=== PATIENT | male | born 1965 | race Caucasian/White ===

== ENCOUNTER 2016-10-28 23:50 | Observation (INO) | payer SELFPAY ==
--- NOTE | ~2016-10-28 | EKG ---
PATIENT: JOSS ALY UNIT #: [id number] Ventricular Rate: 43 BPM Atrial Rate: 43 BPM P-R Interval: 136 ms QRS Duration: 94 ms Q-T Interval: 474 ms QTC Calculation(Bezet): 400 ms P [place]: 50 degrees Calculated R [place]: 52 degrees Calculated T [place]: 58 degrees Diagnosis Line: Marked sinus bradycardia Diagnosis Line: Abnormal ECG Diagnosis Line: When compared with ECG of 12-MAY-2013 20:40, Diagnosis Line: No significant change was found Diagnosis Line: Confirmed by MARY KAY ROSS MD ([id number]) on 10/30/2016 Diagnosis Line: 7:23:32 AM INTERPRETING MD: VANDANA HOOK
--- NOTE | ~2016-10-28 | ST ---
Unit #: [id number] #: [id number] Patient: JOSS ALY [id number] [address] [address] [id number] I MR#: [id number] NAME: JOSS ALY : 1965 SEX: M STUDY DATE/TIME: 10/30/2016 UNIT: C3A PCU ROOM: [facility] STUDY DESCRIPTION: Attending Physician: Ashley Perez M.D. Primary Care Physician: No Primary Care Physician CARDIOLOGY REPORT EXAM Exercise Cardiolite stress test. FINDINGS Baseline EKG: Marked sinus bradycardia with ventricular rate 43 beats per minute, mild left atrial abnormality, T-wave inversion in V1 and V2, early repolarization in inferolateral leads. PROCEDURE Patient walked on the treadmill for 9 minutes utilizing Sreedhar protocol, achieving a workload of 10.1 METs. Next, 95% of maximal target heart rate achieved at 164 beats per minute with a maximum blood pressure response of 142/80 mmHg. EKG during the test was equivocal to baseline. The patient had no complaints of chest pain, palpitations, or dizziness. IMPRESSION 1. Functional class III with a workload of 10.1 METs. 2. The patient walked for 9 minutes, achieving 95% of maximum target heart rate at 164 beats per minute with a maximum blood pressure response of 142/80 mmHg. 3. EKG during the test was equivocal to baseline. No acute ischemia changes. 4. It is noted that patient's heart rate got to a maximum target heart rate at about 6 and a half minutes within the test. Patient complains of increased shortness of breath and fatigueness which resolved in recovery phase. No chest pain noted. 5. Cardiolite was injected at maximum target heart rate. Radionuclide tests pending. Please correlate with nuclear images. Dictated by... Lora Garcia A.P.R.NNavarro for Freda Merritt/herbert TD: 10/30/2016 11:31 JOB #: [id number] Unit #: [id number] #: [id number] Patient: JOSS ALY CARDIOLOGY REPORT Page 1 of 1 X Lora Garcia APRN CARDIOLOGY REPORT
--- NOTE | ~2016-10-28 | EKG ---
PATIENT: JOSS ALY UNIT #: [id number] Ventricular Rate: 114 BPM Atrial Rate: 114 BPM P-R Interval: 152 ms QRS Duration: 92 ms Q-T Interval: 332 ms QTC Calculation(Bezet): 457 ms P [place]: 70 degrees Calculated R [place]: 73 degrees Calculated T [place]: 47 degrees Diagnosis Line: Sinus tachycardia Diagnosis Line: Nonspecific ST abnormality Diagnosis Line: Abnormal ECG Diagnosis Line: When compared with ECG of 12-MAY-2013 20:40, Diagnosis Line: Vent. rate has increased BY 66 BPM Diagnosis Line: Non-specific change in ST segment in Inferior Diagnosis Line: leads Diagnosis Line: Confirmed by SHAMEKA NASH MD ([id number]) on Diagnosis Line: 11/01/2016 3:36:25 PM INTERPRETING MD: SANDRA
--- NOTE | ~2016-10-28 | CR72 ---
[facility]. [facility] A Service of [facility] & [facility] RADIOLOGY TEXT RESULTS PATIENT: JOSS ALY LOCATION: [facility] 332-01 : [birth year] UNIT #: [id number] AGE: [address]: DANIEL WEST MD SEX: M ORDER DR: [id number] [place] [id number] I MR#: [id number] Acc #: [id number] NAME: JOSS ALY : 1965 SEX: M STUDY DATE/TIME: 10/28/2016 23:55 UNIT: SEDOF ROOM: [facility] STUDY DESCRIPTION: CR Chest Single View Portable Attending Physician: Daniel West M.D. Ordering Physician: Ricardo Craig M.D. Primary Care Physician: No Primary Care Physician MEDICAL IMAGING REPORT This report is preliminary unless electronic signature is present. EXAM Portable chest. INDICATION Chest pain and shortness of air beginning just prior to admission. COMPARISON 06/10/08. FINDINGS A portable upright view of the chest was obtained. The heart size and vascularity are normal. The lungs are clear and the bones are unremarkable. IMPRESSION No active disease. Dictated by... Pillo Hale M.D. THIS IS AN ELECTRONICALLY VERIFIED REPORT Pillo Hale M.D. at 10/29/2016 1:21 PM FEL/delio TD: 10/29/2016 10:04 JOB #: [id number] MEDICAL IMAGING REPORT Page 1 of 1
--- NOTE | ~2016-10-28 | EKG ---
PATIENT: JOSS ALY UNIT #: [id number] Ventricular Rate: 38 BPM Atrial Rate: 38 BPM P-R Interval: 130 ms QRS Duration: 94 ms Q-T Interval: 466 ms QTC Calculation(Bezet): 370 ms P [place]: 61 degrees Calculated R [place]: 68 degrees Calculated T [place]: 62 degrees Diagnosis Line: Marked sinus bradycardia Diagnosis Line: Abnormal ECG Diagnosis Line: When compared with ECG of 29-OCT-2016 08:44, Diagnosis Line: No significant change was found Diagnosis Line: Confirmed by SHAMEKA NASH MD ([id number]) on Diagnosis Line: 11/01/2016 3:38:02 PM INTERPRETING MD: SANDRA
--- NOTE | ~2016-10-28 | HP ---
Unit #: [id number] #: [id number] Patient: JOSS ALY [id number] [address] [place], [place] [address] [id number] I MR#: [id number] NAME: JOSS ALY ROOM: 332 Age: 50 Sex: M Admission Date: 10/29/2016 : 1965 Attending Physician: Ashley Perez M.D. Primary Care Physician: No Primary Care Physician HISTORY AND PHYSICAL HISTORY OF PRESENT ILLNESS This is a 50-year-old white male who has had no prior cardiac history of testing. He denies any history of hypertension, hyperlipidemia, diabetes but he does smoke cigarettes. The patient presented to the emergency room with a complaint of substernal chest pain. It does not radiate into his neck, arm or jaw. His symptoms have been ongoing for the past 24 hours. He describes his pain as a tightness that waxes and wanes. He has been emotionally upset because of the recent of both his daughter and grandchild. In the emergency room, his troponin was negative. An EKG shows no acute ischemic changes but noted for marked sinus bradycardia with a heart rate of 38 beats per minute. He is usually fairly active and has no symptoms of angina with activities. PAST MEDICAL HISTORY 1. Active smoker. 2. Recent onset of depression. PAST SURGICAL HISTORY No previous surgeries. 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 He smokes a pack of cigarettes a day. He denies illicit drug and alcohol use. FAMILY HISTORY Negative for coronary artery disease. ALLERGIES No known drug allergies. HOME MEDICATIONS No current medications. REVIEW OF SYSTEMS CONSTITUTIONAL: Negative for fever or chills. He has no weight gain or weight loss. HEENT: No headache. No vision changes or difficulty with swallowing. No dizziness. CARDIOVASCULAR: He has chest pain described in the HPI. The patient denies palpitations. No paroxysmal nocturnal dyspnea or orthopnea. No syncope. No presyncope. RESPIRATORY: Negative for dyspnea or cough. No hemoptysis. GASTROINTESTINAL: No abdominal pain, nausea, vomiting. No constipation or melena. Unit #: [id number] #: [id number] Patient: JOSS ALY EXTREMITIES: Negative for lower extremity edema. PHYSICAL EXAMINATION GENERAL APPEARANCE: This is a well-developed, 50-year-old young white male who is in no acute distress. VITAL SIGNS: Blood pressure 99/53. Heart rate 48. Temperature 98.6. BMI 24. NEUROLOGIC: He is awake, alert, oriented. There is no focal weaknesses. NECK: Trachea is midline. No thyromegaly or lymphadenopathy. No jugular venous distention. HEART: S1, S2. Heart sounds are normal. No murmurs. No rubs or clicks. Regular rate and rhythm. LUNGS: Clear without rales, rhonchi, wheezes. ABDOMEN: Soft, nontender but bowel sounds are present. EXTREMITIES: Without leg edema. SKIN: Warm and dry. DIAGNOSTIC STUDIES LABORATORY: Sodium 137, potassium 5.1, BUN 11, creatinine 1.0, glucose 127. On admission, potassium was 2.6. Cholesterol 144, triglycerides 83, LDL 98, HDL 29, TSH 0.63. Troponin less than 0.05 x2 and less than 0.03 x2. White count 13.7, hemoglobin 14.1, hematocrit 41.4, platelet count 242. IMAGING: Chest x-ray shows no active disease. CARDIOVASCULAR: EKG shows marked sinus bradycardia with a rate of 38 beats per minute. There are peak T waves. IMPRESSION 1. Chest pain ruled out for an acute myocardial infarction. 2. Marked asymptomatic sinus bradycardia. 3. Hypokalemia. 4. Nicotine abuse. 5. New onset of depression. PLAN 1. The patient is scheduled for exercise Cardiolite stress test to rule out coronary artery disease. 2. TSH is normal. 3. Echocardiogram will be obtained to evaluate for structural heart disease and left ventricular systolic function. 4. The patient will require medication for depression and stress. 5. Potassium was supplemented. ADDENDUM The patient underwent exercise Cardiolite stress test which found him to have no stress induced ischemia with an ejection fraction of 50% after walking nine minutes on the treadmill with adequate heart rate response. The patient is asymptomatic for bradycardia. The patient will require Wellbutrin to help him quit smoking and with depression. He has no suicidal ideation. It was discussed with the patient and the family about the antidepressive side effects and benefits. I encouraged the patient to quit smoking. Unit #: [id number] #: [id number] Patient: JERMAINJOSS A 2-D echocardiogram shows ejection fraction of 55% with mild tricuspid regurgitation. The patient was bradycardiac during the echo examination. The patient will be discharged today to follow up with Dr. Santo on Friday, January the at 12 noon. Dictated by Jarrett Madrid A.P.R.N. for Freda Merritt/delio TD: 10/31/2016 09:03 JOB #: [id number] HISTORY AND PHYSICAL Page 1 of 1 X Jarrett Madrid APRN X HISTORY AND PHYSICAL
--- NOTE | ~2016-10-28 | TH ---
Unit #: [id number] #: [id number] Patient: JOSS ALY [id number] [address] [address] [id number] I MR#: [id number] NAME: JOSS ALY : 1965 SEX: M STUDY DATE/TIME: 10/30/2016 UNIT: C3A PCU ROOM: [facility] STUDY DESCRIPTION: Cardiolite imaging Attending Physician: Ashley Perez M.D. Primary Care Physician: No Primary Care Physician CARDIOLOGY REPORT EXAM Cardiolite imaging. PROCEDURE Using technetium 99m labeled Cardiolite, rest and stress SPECT images were obtained. Multiple SPECT images were obtained in various views, including horizontal and vertical long axis and short axis views of the left ventricle. Images were obtained by gated SPECT method. The patient was administered 10.29 mCi of Cardiolite at rest. The patient was administered 31.4 mCi of Cardiolite at peak exercise. Total exercise time was 9 minutes. On the stress images there is normal perfusion noted. The rest images showed normal perfusion. Comparing rest and stress images there is no stress induced ischemia noted. The left ventricular ejection fraction is calculated to be 50%. There is no focal wall motion abnormality seen. CONCLUSION 1. No stress induced ischemia noted. 2. The lf ejection fraction is calculated to be 50%. 3. There is no focal wall motion abnormality seen. 4. Normal exercise Cardiolite stress test. Dictated by... Freda Merritt TD: 10/30/2016 14:27 JOB #: [id number] CARDIOLOGY REPORT Page 1 of 1 X Hanane Santo MD <ELECTRONICALLY SIGNED> 12/07/16 1429 CARDIOLOGY REPORT
[~2016-10-28 23:50] MED LIST: BROMFED DM COU118 ML PO; DOLOBID500 MG PO; FAMOTIDINE PO; FLEXERIL10 M1 PO; NO MEDICATIONS; TYLENOL #3 PO; VOLTAREN50 MG PO; VOLTAREN75 MG PO
[2016-10-29] MEDS ORDERED: NO MEDICATIONS (00:04)
[2016-10-29 00:05] LABS: BASOPHIL% 0.3 % (0-2.5); EOSINOPHIL# 0.2 X10e3 (0-0.7); EOSINOPHIL% 1.2 % (0.0-7.0); HEMATOCRIT 41.4 % (38.0-50.0); HEMOGLOBIN 14.1 gm/dL (13.0-16.0); LYMPHOCYTE# 4.7 X10e3 (1.0-3.5); LYMPHOCYTE% 34.2 % (17.0-45.0); MEAN CELL VOLUME 87.2 FL (83-96); MEAN CORPUSCULAR HEMOGLOBIN 29.8 PG (28-34); MEAN CORPUSCULAR HGB CONC 34.1 g/dL (30-36); MEAN PLATELET VOLUME 9.1 FL (6.5-11.5); MONOCYTE% 7.2 % (3.0-12.0); NEUTROPHIL# 7.8 X10e3 (1.5-7.1); NEUTROPHIL% 57.1 % (40-75); PLATELET COUNT 242 X10e3 (140-420); RED BLOOD COUNT 4.74 X10e (3.90-5.60); RED CELL DISTRIBUTION WIDTH 13.9 % (11.0-15.5); WHITE BLOOD COUNT 13.7 X10e3 (4.0-10.5)
[2016-10-29 00:06] LABS: DIFF IND NO
[2016-10-29 00:15] LABS: INR 1.2; PROTHROMBIN TIME (PATIENT) 13.6 SECONDS (9.5-12.4)
[2016-10-29 00:23] LABS: PARTIAL THROMBOPLASTIN TIME 25.9 SECONDS (25.6-38.1)
[2016-10-29 00:25] LABS: POC - CKMB <1.0 ng/mL (0.0-7.9)
[2016-10-29 00:26] LABS: POC - TROPONIN <0.05 ng/mL (<=0.05)
[2016-10-29 00:27] LABS: CALCIUM SERUM 9.1 mg/dL (8.4-10.2); CREATININE SERUM 1.2 mg/dL (0.6-1.4); GLOM FILT RATE Estimated 71.1 mL/min (>60)
[2016-10-29 00:31] LABS: POTASSIUM 2.6 mmol/L (3.5-5.1)
[2016-10-29 02:22] LABS: POC - CKMB <1.0 ng/mL (0.0-7.9)
[2016-10-29 02:23] LABS: POC - TROPONIN <0.05 ng/mL (<=0.05)
[2016-10-29 11:44] LABS: CALCIUM SERUM 8.7 mg/dL (8.4-10.2); GLOM FILT RATE Estimated 88.6 mL/min (>60)
[2016-10-29 12:00] LABS: POTASSIUM 5.1 mmol/L (3.5-5.1)
[2016-10-30 06:55] LABS: BUN/CREATININE RATIO 15.55; CALCIUM SERUM 9.1 mg/dL (8.4-10.2); CREATININE SERUM 0.9 mg/dL (0.6-1.4); GLOM FILT RATE Estimated 100.6 mL/min (>60); POTASSIUM 4.2 mmol/L (3.5-5.1)
[2016-10-30 07:07] LABS: CHOLESTEROL 144 mg/dL (0-200); HDL CHOLESTEROL 29 mg/dL (29-75); LDL CHOLESTEROL 98 mg/dL ([, -130]); LDL/HDL RATIO 3 RATIO (0-4); TRIGLYCERIDES 83 mg/dL (10-160)
[2016-10-30] MEDS ORDERED: WELLBUTRIN PO (14:50)
== END 2016-10-30 15:58 | disposition home or self-care (01) | DRG 313 ==
LOC: SED 23:50 → C3A PCU 10-29 02:10 → SEDOF 10-29 02:10 → C3A PCU 10-29 08:17 → SEDOF 10-29 08:17 → C3A PCU 10-29 08:55 → SED 10-29 08:55 → C3A PCU 10-30 15:58
PROVIDERS: Emergency Medicine; Internal Medicine; Internal Medicine Cardiovascular Disease
DX: R07.89 Other chest pain (principal); R00.1 Bradycardia, unspecified; E87.6 Hypokalemia; F32.9 Major depressive disorder, single episode, unspecified; F17.210 Nicotine dependence, cigarettes, uncomplicated; I07.1 Rheumatic tricuspid insufficiency
CPT/HCPCS: 36415; 71010; 78452; 80048; 80061; 82553; 82947; 84443; 84484; 85025; 85610; 85730; 93005; 93017; 93306; 96361; 96374; 99285; A9500; G0378; J0461; J2405

== ENCOUNTER 2016-11-20 11:57 | Emergency (ER) | payer SELFPAY ==
[~2016-11-20 11:57] MED LIST changes: +WELLBUTRIN PO
== END 2016-11-20 13:45 | disposition home or self-care (01) ==
LOC: SED 11:57
DX: L29.9 Pruritus, unspecified (principal); L50.9 Urticaria, unspecified; T78.40XA Allergy, unspecified, initial encounter; F32.9 Major depressive disorder, single episode, unspecified; F17.210 Nicotine dependence, cigarettes, uncomplicated
CPT/HCPCS: 99282

== ENCOUNTER 2017-01-04 14:25 | Emergency (ER) | payer OTHER ==
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
== END 2017-01-04 17:31 | disposition home or self-care (01) ==
LOC: SED 14:25
DX: S16.1XXA Strain of muscle, fascia and tendon at neck level, initial encounter (principal); S39.012A Strain of muscle, fascia and tendon of lower back, initial encounter; V43.52XA Car driver injured in collision with other type car in traffic accident, initial encounter; Y93.89 Activity, other specified; Y92.410 Unspecified street and highway as the place of occurrence of the external cause
CPT/HCPCS: 72040; 72100; 72125; 96372; 99284; J1885